=== PATIENT | female | born 1980 | race Caucasian/White ===

== ENCOUNTER 2017-02-04 02:43 | Inpatient (IN) | payer BC ==
[2017-02-04] MEDS ORDERED: HYDROmorphone 1 MG/ML Syringe IVPUSH ONE ×2 (03:10→04:15)
[2017-02-04] MEDS ORDERED: Ondansetron 4 MG/2 ML SDV IVPUSH ONE ×2 (03:10→05:03)
--- NOTE | 2017-02-04 03:13 | EDM.PDOC ---
ED HPI GENERAL MEDICAL PROBLEM - General Chief Complaint: Abdominal Pain Stated Complaint: LOWER ABDOMINAL PAIN Time Seen by Provider: 02/04/17 02:56 Source of Information: Reports: Patient, RN Notes Reviewed History Limitations: Reports: No Limitations - History of Present Illness INITIAL COMMENTS - FREE TEXT/NARRATIVE: The patient states that she developed sudden onset of lower central abdominal pain that occasionally radiates to the upper abdomen around 01:00 this morning, while sitting at work. It is stabbing/shooting in character. It feels better if she holds her breath and remains still, worse with movement. No recent fever, nausea, vomiting, constipation, diarrhea, or urinary symptoms. No prior similar symptoms. The patient's last oral solid intake was around midnight, her last oral liquid intake around 01:00 this morning. The patient does not have a PCP. Bilateral Lower Abdomen Pain Score (Numeric/FACES): 7 - Related Data Allergies Allergy/AdvReac Type Severity Reaction Status Date / Time No Known Allergies Allergy Verified 02/04/17 02:48 Home Meds: Home Meds Omeprazole 20 mg PO DAILY 02/04/17 [History] Past Medical History Cardiovascular History: Reports: High Cholesterol (untreated) Gastrointestinal History: Reports: GERD Endocrine/Metabolic History: Reports: Obesity/BMI 30+ - Past Surgical History HEENT Surgical History: Reports: Oral Surgery ([place] teeth extraction) Social & Family History - Tobacco Use Smoking Status *Q: Current Every Day Smoker Years of Tobacco use: 24 Packs/Tins Daily: 1 - Alcohol Use Alcohol Use History: Yes Alcohol Use Frequency: Socially - Recreational Drug Use Recreational Drug Use: Yes Drug Use in Last 12 Months: No Recreational Drug Type: Reports: Marijuana/Hashish (last = 2013), Methamphetamine (last = 2013) - Living Situation & Occupation Living situation: Reports: (currently ), Alone 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) ED ROS GENERAL - Review of Systems Review Of Systems: See Below Constitutional: Reports: No Symptoms HEENT: Reports: No Symptoms Respiratory: Reports: No Symptoms Cardiovascular: Reports: No Symptoms Endocrine: Reports: No Symptoms GI/Abdominal: Reports: No Symptoms : Reports: No Symptoms Musculoskeletal: Reports: No Symptoms Skin: Reports: No Symptoms Neurological: Reports: No Symptoms Psychiatric: Reports: No Symptoms Hematologic/Lymphatic: Reports: No Symptoms Immunologic: Reports: No Symptoms ED EXAM, GI/ABD - Physical Exam Exam: See Below Exam Limited By: No Limitations General Appearance: Alert, WD/WN, No Apparent Distress Eyes: Bilateral: Normal Appearance, EOMI Ears: Normal External Exam, Hearing Grossly Normal Nose: Normal Inspection, No Blood Throat/Mouth: Normal Inspection, Normal Lips, Normal Voice, No Airway Compromise Head: Atraumatic, Normocephalic Neck: Normal Inspection, Full Range of Motion Respiratory/Chest: No Respiratory Distress, Lungs Clear, Normal Breath Sounds, No Accessory Muscle Use Cardiovascular: Normal Peripheral Pulses, Regular Rate, Rhythm, No Gallop, No JVD, No Murmur, No Rub GI/Abdominal Exam: Normal Bowel Sounds, Soft, No Organomegaly, No Distention, No Abnormal Bruit, No Mass, Pelvis Stable, Tender (Mild general tenderness, but particularly tender in the left upper quadrant.), Abnormal Bowel Sounds (No bowel sounds heard), Other (Obese). No: Rebound (Female) Exam: Deferred Back Exam: Normal Inspection, Full Range of Motion. No: CVA Tenderness (L), CVA Tenderness (R) Extremities: Normal Inspection, Normal Range of Motion, No Pedal Edema, Normal Capillary Refill Neurological: Alert, Oriented, Normal Cognition, No Motor/Sensory Deficits Psychiatric: Normal Affect Skin Exam: Warm, Dry, Intact, Normal Color, No Rash Course - Vital Signs Last Recorded V/S: Last Vital Signs Temp 36.5 C 02/04/17 02:49 Pulse 90 02/04/17 02:49 Resp 16 02/04/17 02:49 BP 149/86 H 02/04/17 02:49 Pulse Ox 99 02/04/17 02:49 - Orders/Labs/Meds Orders: Active Orders 24 hr Category Date Time Status Abdomen Pelvis w Cont [CT] Stat Exams 02/04/17 03:10 Taken Transvaginal Non OB [US] Stat Exams 02/04/17 05:18 Taken Sodium Chloride 0.9% [Normal Saline] 1,000 ml Med 02/04/17 03:15 Active IV ASDIRECTED Medication Orders Sodium Chloride (Normal Saline) 1,000 mls @ 150 mls/hr IV ASDIRECTED MICHELLE Last Admin: 02/04/17 03:21 Dose: 150 mls/hr Labs: Laboratory Tests 02/04/17 02/04/17 02/04/17 Range/Units 03:00 03:00 03:14 WBC 6.18 (3.98-10.04) K/mm3 RBC 4.71 (3.98-5.22) M/mm3 Hgb 14.4 (11.2-15.7) gm/L Hct 42.8 (34.1-44.9) % MCV 90.9 (79.4-94.8) fl MCH 30.6 (25.6-32.2) pg MCHC 33.6 (32.2-35.5) g/dl RDW Std Deviation 41.3 (36.4-46.3) fL Plt Count 286 (182-369) K/mm3 MPV 9.5 (9.4-12.3) fl Neutrophils % (Manual) 56 (40-60) % Band Neutrophils % 0 (0-10) % Lymphocytes % (Manual) 34 (20-40) % Atypical Lymphs % 2 % Monocytes % (Manual) 5 (2-10) % Eosinophils % (Manual) 2 (0.7-5.8) % Basophils % (Manual) 1 (0.1-1.2) Platelet Estimate Adequate Plt Morphology Comment Normal RBC Morph Comment Normal Sodium (136-145) mEq/L Potassium (3.5-5.1) mEq/L Chloride (98-107) mEq/L Carbon Dioxide (21-32) mEq/L Anion Gap (5-15) BUN (7-18) mg/dL Creatinine (0.55-1.02) mg/dL Est Cr Clr Drug Dosing mL/min Estimated GFR (MDRD) (>60) mL/min BUN/Creatinine Ratio (14-18) Glucose (74-106) mg/dL Calcium (8.5-10.1) mg/dL Total Bilirubin (0.2-1.0) mg/dL AST (15-37) U/L ALT (14-59) U/L Alkaline Phosphatase (46-116) U/L Total Protein (6.4-8.2) g/dl Albumin (3.4-5.0) g/dl Globulin gm/dL Albumin/Globulin Ratio (1-2) Lipase (73-393) U/L Urine Color Yellow (Yellow) Urine Appearance Slt cloudy H (Clear) Urine pH 6.0 (5.0-8.0) Ur Specific [place] > or = 1.030 (1.005-1.030) Urine Protein Negative (Negative) Urine Glucose (UA) Negative (Negative) Urine Ketones Negative (Negative) Urine Occult Blood 2+ H (Negative) Urine Nitrite Negative (Negative) Urine Bilirubin Negative (Negative) Urine Urobilinogen 0.2 (0.2-1.0) Ur Leukocyte Esterase Negative (Negative) Urine RBC 0-5 (0-5) /hpf Urine WBC 0-5 (0-5) /hpf Ur Epithelial Cells 0-5 (0-5) /hpf Urine Bacteria Rare (FEW) /hpf Hyaline Casts 0-5 (0-5) /lpf Urine Mucus Moderate H (FEW) /hpf Urine HCG, Qual Negative (NEGATIVE) 02/04/17 02/04/17 Range/Units 03:14 06:40 WBC (3.98-10.04) K/mm3 RBC (3.98-5.22) M/mm3 Hgb 14.1 (11.2-15.7) gm/L Hct 42.0 (34.1-44.9) % MCV (79.4-94.8) fl MCH (25.6-32.2) pg MCHC (32.2-35.5) g/dl RDW Std Deviation (36.4-46.3) fL Plt Count (182-369) K/mm3 MPV (9.4-12.3) fl Neutrophils % (Manual) (40-60) % Band Neutrophils % (0-10) % Lymphocytes % (Manual) (20-40) % Atypical Lymphs % % Monocytes % (Manual) (2-10) % Eosinophils % (Manual) (0.7-5.8) % Basophils % (Manual) (0.1-1.2) Platelet Estimate Plt Morphology Comment RBC Morph Comment Sodium 143 (136-145) mEq/L Potassium 3.8 (3.5-5.1) mEq/L Chloride 105 (98-107) mEq/L Carbon Dioxide 26 (21-32) mEq/L Anion Gap 15.8 H (5-15) BUN 16 (7-18) mg/dL Creatinine 1.2 H (0.55-1.02) mg/dL Est Cr Clr Drug Dosing 51.75 mL/min Estimated GFR (MDRD) 51 (>60) mL/min BUN/Creatinine Ratio 13.3 L (14-18) Glucose 95 (74-106) mg/dL Calcium 8.8 (8.5-10.1) mg/dL Total Bilirubin 0.5 (0.2-1.0) mg/dL AST 26 (15-37) U/L ALT 47 (14-59) U/L Alkaline Phosphatase 67 (46-116) U/L Total Protein 6.9 (6.4-8.2) g/dl Albumin 3.8 (3.4-5.0) g/dl Globulin 3.1 gm/dL Albumin/Globulin Ratio 1.2 (1-2) Lipase 123 (73-393) U/L Urine Color (Yellow) Urine Appearance (Clear) Urine pH (5.0-8.0) Ur Specific [place] (1.005-1.030) Urine Protein (Negative) Urine Glucose (UA) (Negative) Urine Ketones (Negative) Urine Occult Blood (Negative) Urine Nitrite (Negative) Urine Bilirubin (Negative) Urine Urobilinogen (0.2-1.0) Ur Leukocyte Esterase (Negative) Urine RBC (0-5) /hpf Urine WBC (0-5) /hpf Ur Epithelial Cells (0-5) /hpf Urine Bacteria (FEW) /hpf Hyaline Casts (0-5) /lpf Urine Mucus (FEW) /hpf Urine HCG, Qual (NEGATIVE) Meds: Medications Generic Name Dose Route Start Last Admin Trade Name Freq PRN Reason Stop Dose Admin Sodium Chloride 1,000 mls @ 150 mls/hr 02/04/17 03:15 02/04/17 03:21 Normal Saline IV 150 mls/hr ASDIRECTED MICHELLE Administration Discontinued Medications Generic Name Dose Route Start Last Admin Trade Name Freq PRN Reason Stop Dose Admin Diatrizoate Meglum/Diatrizoate Sod 90 ml 02/04/17 04:20 02/04/17 04:41 Gastrografin 37% PO 02/04/17 04:21 90 ml ONETIME ONE Administration Hydromorphone HCl 1 mg 02/04/17 03:10 02/04/17 03:24 Dilaudid IVPUSH 02/04/17 03:11 1 mg ONETIME ONE Administration Hydromorphone HCl 1 mg 02/04/17 04:15 02/04/17 04:23 Dilaudid IVPUSH 02/04/17 04:16 1 mg ONETIME ONE Administration Hydromorphone HCl 0.5 mg 02/04/17 06:45 02/04/17 06:51 Dilaudid IVPUSH 02/04/17 06:46 0.5 mg ONETIME ONE Administration Iopamidol 125 ml 02/04/17 04:20 02/04/17 04:41 Isovue-300 (61%) IVPUSH 02/04/17 04:21 125 ml ONETIME ONE Administration Ondansetron HCl 4 mg 02/04/17 03:10 02/04/17 03:21 Zofran IVPUSH 02/04/17 03:11 4 mg ONETIME ONE Administration Ondansetron HCl 4 mg 02/04/17 05:03 02/04/17 05:08 Zofran IVPUSH 02/04/17 05:04 4 mg ONETIME ONE Administration Sodium Chloride 10 ml 02/04/17 04:20 02/04/17 04:41 Saline Flush FLUSH 02/04/17 04:21 10 ml ONETIME ONE Administration - Re-Assessments/Exams Free Text/Narrative Re-Assessment/Exam: 02/04/17 05:13 CT of the abdomen and pelvis with oral and IV contrast is read by virtual radiology as: 1. Heterogeneous left adnexal mass, differential considerations to include hemorrhagic ovarian cyst or mass, hematoma. Also correlate with beta hCG for ectopic . [id number] amount of hemorrhagic fluid. 2. Gastric distention with enteric contrast. Correlate with plain patient finished oral contrast to exclude gastroparesis. 02/04/17 05:[address] Bullock at 05:13. She would like me to obtain a pelvic ultrasound to evaluate the left ovary and the amount leading into the pelvis, and, in the meantime, she will come to the ED to evaluate the patient. 02/04/17 06:59 Dr. Bullock came by and stated that the U/S demonstrated blood up over the fundus. She repeated a hemogram, which was stable, and the patient has remained hemodynamically stable. Dr. Bullock was willing to place the patient into observation, however, she is concerned that the pain will continue because of the presence of the blood, therefore they have decided to go to the OR for laparoscopy. Departure - Departure Time of Disposition: 07:02 Disposition: DC/Tfer to [facility] Condition: Fair Clinical Impression: Hemorrhagic cyst of left ovary, Intraabdominal hemorrhage - Discharge Information - My Orders Last 24 Hours: My Active Orders 02/04/17 03:10 Abdomen Pelvis w Cont [CT] Stat 02/04/17 03:15 Sodium Chloride 0.9% [Normal Saline] 1,000 ml IV ASDIRECTED 02/04/17 05:18 Transvaginal Non OB [US] Stat - Assessment/Plan Last 24 Hours: My Active Orders 02/04/17 03:10 Abdomen Pelvis w Cont [CT] Stat 02/04/17 03:15 Sodium Chloride 0.9% [Normal Saline] 1,000 ml IV ASDIRECTED 02/04/17 05:18 Transvaginal Non OB [US] Stat
[2017-02-04] MEDS: Sodium Chloride 0.9% 1,000 ML IV SCH ×2 (03:21→14:46)
[2017-02-04] MEDS ORDERED: Sodium Chloride 0.9% 10 ML Syringe FLUSH ONE (04:20)
[2017-02-04] MEDS ORDERED: Diatrizoate Meglumine/Diatrizoate Sodium 37% 120 ML Bottle PO ONE (04:20)
[2017-02-04] MEDS ORDERED: Iopamidol 612 MG/ML 150 ML Bottle IVPUSH ONE (04:20)
--- NOTE | 2017-02-04 06:42 | PCM.HP ---
H&P History of Present Illness - General Date of Service: 02/04/17 Source of Information: Patient History Limitations: Reports: No Limitations - History of Present Illness Initial Comments - Free Text/Narative: Patient is a 37 y/o G0 who presents to the ER today for an acute episode of abdominal pain. Reports she was sitting at her work earlier this am, around 0100, when she had the feeling of sudden onset of pain and feeling warm/ flushed. Went home and tried to lay down, but pain worsened and so was brought to the ER by a friend. Denies any fevers, chills, diarrhea, constipation, dysuria, hematuria. Bilateral Lower Abdomen Pain Score (Numeric/FACES): 7 - Related Data Allergies/Adverse Reactions: Allergies Allergy/AdvReac Type Severity Reaction Status Date / Time No Known Allergies Allergy Verified 02/04/17 02:48 Home Medications: Home Meds Omeprazole 20 mg PO DAILY 02/04/17 [History] Past Medical History Cardiovascular History: Reports: High Cholesterol (untreated) Gastrointestinal History: Reports: GERD Endocrine/Metabolic History: Reports: Obesity/BMI 30+ - Past Surgical History HEENT Surgical History: Reports: Oral Surgery ([place] teeth extraction) Social & Family History - Tobacco Use Smoking Status *Q: Current Every Day Smoker Years of Tobacco use: 24 Packs/Tins Daily: 1 - Alcohol Use Alcohol Use History: Yes Alcohol Use Frequency: Socially - Recreational Drug Use Recreational Drug Use: Yes Drug Use in Last 12 Months: No Recreational Drug Type: Reports: Marijuana/Hashish (last = 2013), Methamphetamine (last = 2013) - Living Situation & Occupation Living situation: Reports: (currently ), Alone 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) H&P Review of Systems - Review of Systems: Review Of Systems: See Below General: Reports: No Symptoms Pulmonary: Reports: No Symptoms Cardiovascular: Reports: No Symptoms Gastrointestinal: Reports: Abdominal Pain, Nausea Genitourinary: Reports: No Symptoms Musculoskeletal: Reports: No Symptoms Psychiatric: Reports: No Symptoms Exam - Exam Exam: See Below - Vital Signs Vital Signs: Last Vital Signs Temp 36.5 C 02/04/17 02:49 Pulse 90 02/04/17 02:49 Resp 16 02/04/17 02:49 BP 149/86 H 02/04/17 02:49 Pulse Ox 99 02/04/17 02:49 Weight: 138.346 kg - Exam General: Alert, Oriented, Mild Distress Lungs: Clear to Auscultation, Normal Respiratory Effort Cardiovascular: Regular Rate, Regular Rhythm GI/Abdominal Exam: Soft, Guarding, Tender Extremities: Normal Inspection Skin: Warm, Dry, Intact - Patient Data Lab Results Last 24 hrs: Laboratory Results - last 24 hr 02/04/17 02/04/17 02/04/17 Range/Units 03:00 03:00 03:14 WBC 6.18 (3.98-10.04) K/mm3 RBC 4.71 (3.98-5.22) M/mm3 Hgb 14.4 (11.2-15.7) gm/L Hct 42.8 (34.1-44.9) % MCV 90.9 (79.4-94.8) fl MCH 30.6 (25.6-32.2) pg MCHC 33.6 (32.2-35.5) g/dl RDW Std Deviation 41.3 (36.4-46.3) fL Plt Count 286 (182-369) K/mm3 MPV 9.5 (9.4-12.3) fl Neutrophils % (Manual) 56 (40-60) % Band Neutrophils % 0 (0-10) % Lymphocytes % (Manual) 34 (20-40) % Atypical Lymphs % 2 % Monocytes % (Manual) 5 (2-10) % Eosinophils % (Manual) 2 (0.7-5.8) % Basophils % (Manual) 1 (0.1-1.2) Platelet Estimate Adequate Plt Morphology Comment Normal RBC Morph Comment Normal Sodium (136-145) mEq/L Potassium (3.5-5.1) mEq/L Chloride (98-107) mEq/L Carbon Dioxide (21-32) mEq/L Anion Gap (5-15) BUN (7-18) mg/dL Creatinine (0.55-1.02) mg/dL Est Cr Clr Drug Dosing mL/min Estimated GFR (MDRD) (>60) mL/min BUN/Creatinine Ratio (14-18) Glucose (74-106) mg/dL Calcium (8.5-10.1) mg/dL Total Bilirubin (0.2-1.0) mg/dL AST (15-37) U/L ALT (14-59) U/L Alkaline Phosphatase (46-116) U/L Total Protein (6.4-8.2) g/dl Albumin (3.4-5.0) g/dl Globulin gm/dL Albumin/Globulin Ratio (1-2) Lipase (73-393) U/L Urine Color Yellow (Yellow) Urine Appearance Slt cloudy H (Clear) Urine pH 6.0 (5.0-8.0) Ur Specific [place] > or = 1.030 (1.005-1.030) Urine Protein Negative (Negative) Urine Glucose (UA) Negative (Negative) Urine Ketones Negative (Negative) Urine Occult Blood 2+ H (Negative) Urine Nitrite Negative (Negative) Urine Bilirubin Negative (Negative) Urine Urobilinogen 0.2 (0.2-1.0) Ur Leukocyte Esterase Negative (Negative) Urine RBC 0-5 (0-5) /hpf Urine WBC 0-5 (0-5) /hpf Ur Epithelial Cells 0-5 (0-5) /hpf Urine Bacteria Rare (FEW) /hpf Hyaline Casts 0-5 (0-5) /lpf Urine Mucus Moderate H (FEW) /hpf Urine HCG, Qual Negative (NEGATIVE) 02/04/17 Range/Units 03:14 WBC (3.98-10.04) K/mm3 RBC (3.98-5.22) M/mm3 Hgb (11.2-15.7) gm/L Hct (34.1-44.9) % MCV (79.4-94.8) fl MCH (25.6-32.2) pg MCHC (32.2-35.5) g/dl RDW Std Deviation (36.4-46.3) fL Plt Count (182-369) K/mm3 MPV (9.4-12.3) fl Neutrophils % (Manual) (40-60) % Band Neutrophils % (0-10) % Lymphocytes % (Manual) (20-40) % Atypical Lymphs % % Monocytes % (Manual) (2-10) % Eosinophils % (Manual) (0.7-5.8) % Basophils % (Manual) (0.1-1.2) Platelet Estimate Plt Morphology Comment RBC Morph Comment Sodium 143 (136-145) mEq/L Potassium 3.8 (3.5-5.1) mEq/L Chloride 105 (98-107) mEq/L Carbon Dioxide 26 (21-32) mEq/L Anion Gap 15.8 H (5-15) BUN 16 (7-18) mg/dL Creatinine 1.2 H (0.55-1.02) mg/dL Est Cr Clr Drug Dosing 51.75 mL/min Estimated GFR (MDRD) 51 (>60) mL/min BUN/Creatinine Ratio 13.3 L (14-18) Glucose 95 (74-106) mg/dL Calcium 8.8 (8.5-10.1) mg/dL Total Bilirubin 0.5 (0.2-1.0) mg/dL AST 26 (15-37) U/L ALT 47 (14-59) U/L Alkaline Phosphatase 67 (46-116) U/L Total Protein 6.9 (6.4-8.2) g/dl Albumin 3.8 (3.4-5.0) g/dl Globulin 3.1 gm/dL Albumin/Globulin Ratio 1.2 (1-2) Lipase 123 (73-393) U/L Urine Color (Yellow) Urine Appearance (Clear) Urine pH (5.0-8.0) Ur Specific [place] (1.005-1.030) Urine Protein (Negative) Urine Glucose (UA) (Negative) Urine Ketones (Negative) Urine Occult Blood (Negative) Urine Nitrite (Negative) Urine Bilirubin (Negative) Urine Urobilinogen (0.2-1.0) Ur Leukocyte Esterase (Negative) Urine RBC (0-5) /hpf Urine WBC (0-5) /hpf Ur Epithelial Cells (0-5) /hpf Urine Bacteria (FEW) /hpf Hyaline Casts (0-5) /lpf Urine Mucus (FEW) /hpf Urine HCG, Qual (NEGATIVE) Result Diagrams: 02/04/17 06:40 02/04/17 03:14 *Q Meaningful Use (ADM) - VTE *Q VTE Criteria *Q: - Stroke *Q Stroke Criteria *Q: - AMI *Q AMI Criteria *Q: - Problem List (1) Hemoperitoneum SNOMED Code(s): 696855413 ICD Code: K66.1 - HEMOPERITONEUM Status: Acute Current Visit: Yes (2) Abdominal pain SNOMED Code(s): 64922680 ICD Code: R10.9 - UNSPECIFIED ABDOMINAL PAIN Status: Acute Current Visit : Yes Qualifiers: Abdominal location: lower abdomen, unspecified Qualified Code(s): R10.30 - Lower abdominal pain, unspecified (3) BMI 50.0-59.9, adult SNOMED Code(s): 249531226 ICD Code: Z68.43 - BODY MASS INDEX (BMI) 50-59.9 , ADULT Status: Acute Current Visit: Yes Problem List Initiated/Reviewed/Updated: Yes Orders Last 24hrs: Active Orders 24 hr Category Date Time Status Abdomen Pelvis w Cont [CT] Stat Exams 02/04/17 03:10 Taken Transvaginal Non OB [US] Stat Exams 02/04/17 05:18 Ordered HEMOGLOBIN/HEMATOCRIT,HH [HEME] Stat Lab 02/04/17 06:34 Ordered Sodium Chloride 0.9% [Normal Saline] 1,000 ml Med 02/04/17 03:15 Active IV ASDIRECTED Medication Orders Sodium Chloride (Normal Saline) 1,000 mls @ 150 mls/hr IV ASDIRECTED MICHELLE Last Admin: 02/04/17 03:21 Dose: 150 mls/hr Assessment/Plan Comment:: 37 y/o G0 woman with acute episode of abdominal pain. CT scan done earlier with moderate amount of fluid in her abdomen and possible hemorrhagic cyst. US done following which does show a large amount of fluid in the cul de sac. Patient's Hb repeated after this study and stable when compared to initial evaluation. Reviewed with patient options of having her be admitted to the floor with pain control and serial exams vs diagnostic laparoscopy. Concern with admitting her to the floor is that we may not be able to get ahead of her pain given amount of fluid seen on imaging. Also possibility she could continue to bleed and become unstable. Concern with surgery is that her BMI puts her at high risk of complications. Ultimately after discussion she has elected to proceed with diagnostic laparoscopy, possible cystectomy, possible oophorectomy, possible conversion to open. OR aware.
[2017-02-04] MEDS ORDERED: HYDROmorphone 0.5 MG/0.5 ML Syringe IVPUSH ONE (06:45)
--- NOTE | 2017-02-04 07:03 | US ---
Pelvic ultrasound: Multiple real-time images were obtained transvaginally. Comparison: Prior CT exam performed earlier on the same day (4:41 AM). Large amount of fluid identified within the pelvis which appears complicated and is compatible with blood. Follicles are seen within the right ovary. Left ovary shows a collapsing hemorrhagic cyst measuring 1.7 cm. Uterus is anteverted and appears unremarkable. Endometrial thickness is normal at 2.8 mm. Measurements: Uterus: Length 7.0 cm, AP and 2.9 cm, transverse width 4.2 cm Right ovary: 3.4 x 1.9 x 2.2 cm Left ovary: 4.2 x 3.9 x 1.5 cm Impression: 1. Fair amount of fluid within the pelvis which appears complicated and is compatible with blood. Collapsing hemorrhagic cyst noted within the left ovary measuring 1.7 cm. 2. Pelvic ultrasound is otherwise unremarkable. Diagnostic code #3
--- NOTE | 2017-02-04 07:40 | PCM.PREANE ---
Preanesthetic Assessment - Procedure Proposed Procedure: Diagnostic laparoscopy - Anesthesia/Transfusion/Family Hx Anesthesia History: No Prior Anesthesia Type of Anesthesia Reaction: Unknown Family History of Anesthesia Reaction: No Transfusion History: No Prior Transfusion(s) Type of Transfusion Reactions: Reports: Unknown Intubation History: Unknown - Review of Systems General: No Symptoms Pulmonary: Shortness of Breath (due to smoking per patient ) Cardiovascular: Other (hyperlipidemia ) Gastrointestinal: Abdominal Pain Neurological: No Symptoms Other: Reports: Easy Bruising, Anxiety - Physical Assessment NPO Status Date: 02/04/17 NPO Status Time: 00:00 O2 Sat by Pulse Oximetry: 99 Respiratory Rate: 16 Vital Signs: Last Vital Signs Temp 36.5 C 02/04/17 02:49 Pulse 90 02/04/17 02:49 Resp 16 02/04/17 02:49 BP 149/86 H 02/04/17 02:49 Pulse Ox 99 02/04/17 02:49 Height: 1.57 m Weight: 138.346 kg ASA Class: 2E Mental Status: Alert & Oriented x3 Airway Class: Mallampati = 2 Dentition: Reports: Normal Dentition, Broken Tooth/Teeth (cracked left bottom molar, multiple fillings on right bottom molars ) Thyro-Mental Finger Breadths: 3 Mouth Opening Finger Breadths: 3 ROM/Head Extension: Full Lungs: Clear to Auscultation, Normal Respiratory Effort Cardiovascular: Regular Rate, Regular Rhythm - Lab Values: Laboratory Last Values WBC 6.18 K/mm3 (3.98-10.04) 02/04/17 03:14 RBC 4.71 M/mm3 (3.98-5.22) 02/04/17 03:14 Hgb 14.1 gm/L (11.2-15.7) 02/04/17 06:40 Hct 42.0 % (34.1-44.9) 02/04/17 06:40 MCV 90.9 fl (79.4-94.8) 02/04/17 03:14 MCH 30.6 pg (25.6-32.2) 02/04/17 03:14 MCHC 33.6 g/dl (32.2-35.5) 02/04/17 03:14 RDW Std Deviation 41.3 fL (36.4-46.3) 02/04/17 03:14 Plt Count 286 K/mm3 (182-369) 02/04/17 03:14 MPV 9.5 fl (9.4-12.3) 02/04/17 03:14 Neutrophils % (Manual) 56 % (40-60) 02/04/17 03:14 Band Neutrophils % 0 % (0-10) 02/04/17 03:14 Lymphocytes % (Manual) 34 % (20-40) 02/04/17 03:14 Atypical Lymphs % 2 % 02/04/17 03:14 Monocytes % (Manual) 5 % (2-10) 02/04/17 03:14 Eosinophils % (Manual) 2 % (0.7-5.8) 02/04/17 03:14 Basophils % (Manual) 1 (0.1-1.2) 02/04/17 03:14 Platelet Estimate Adequate 02/04/17 03:14 Plt Morphology Comment Normal 02/04/17 03:14 RBC Morph Comment Normal 02/04/17 03:14 Sodium 143 mEq/L (136-145) 02/04/17 03:14 Potassium 3.8 mEq/L (3.5-5.1) 02/04/17 03:14 Chloride 105 mEq/L (98-107) 02/04/17 03:14 Carbon Dioxide 26 mEq/L (21-32) 02/04/17 03:14 Anion Gap 15.8 (5-15) H 02/04/17 03:14 BUN 16 mg/dL (7-18) 02/04/17 03:14 Creatinine 1.2 mg/dL (0.55-1.02) H 02/04/17 03:14 Est Cr Clr Drug Dosing 51.75 mL/min 02/04/17 03:14 Estimated GFR (MDRD) 51 mL/min (>60) 02/04/17 03:14 BUN/Creatinine Ratio 13.3 (14-18) L 02/04/17 03:14 Glucose 95 mg/dL (74-106) 02/04/17 03:14 Calcium 8.8 mg/dL (8.5-10.1) 02/04/17 03:14 Total Bilirubin 0.5 mg/dL (0.2-1.0) 02/04/17 03:14 AST 26 U/L (15-37) 02/04/17 03:14 ALT 47 U/L (14-59) 02/04/17 03:14 Alkaline Phosphatase 67 U/L (46-116) 02/04/17 03:14 Total Protein 6.9 g/dl (6.4-8.2) 02/04/17 03:14 Albumin 3.8 g/dl (3.4-5.0) 02/04/17 03:14 Globulin 3.1 gm/dL 02/04/17 03:14 Albumin/Globulin Ratio 1.2 (1-2) 02/04/17 03:14 Lipase 123 U/L (73-393) 02/04/17 03:14 Urine Color Yellow (Yellow) 02/04/17 03:00 Urine Appearance Slt cloudy (Clear) H 02/04/17 03:00 Urine pH 6.0 (5.0-8.0) 02/04/17 03:00 Ur Specific [place] > or = 1.030 (1.005-1.030) 02/04/17 03:00 Urine Protein Negative (Negative) 02/04/17 03:00 Urine Glucose (UA) Negative (Negative) 02/04/17 03:00 Urine Ketones Negative (Negative) 02/04/17 03:00 Urine Occult Blood 2+ (Negative) H 02/04/17 03:00 Urine Nitrite Negative (Negative) 02/04/17 03:00 Urine Bilirubin Negative (Negative) 02/04/17 03:00 Urine Urobilinogen 0.2 (0.2-1.0) 02/04/17 03:00 Ur Leukocyte Esterase Negative (Negative) 02/04/17 03:00 Urine RBC 0-5 /hpf (0-5) 02/04/17 03:00 Urine WBC 0-5 /hpf (0-5) 02/04/17 03:00 Ur Epithelial Cells 0-5 /hpf (0-5) 02/04/17 03:00 Urine Bacteria Rare /hpf (FEW) 02/04/17 03:00 Hyaline Casts 0-5 /lpf (0-5) 02/04/17 03:00 Urine Mucus Moderate /hpf (FEW) H 02/04/17 03:00 Urine HCG, Qual Negative (NEGATIVE) 02/04/17 03:00 - Allergies Allergies/Adverse Reactions: Allergies Allergy/AdvReac Type Severity Reaction Status Date / Time No Known Allergies Allergy Verified 02/04/17 02:48 - Blood Blood Available: No Product(s) Available: None - Anesthesia Plan Pre-Op Medication Ordered: None - Acknowledgements Anesthesia Type Planned: General Anesthesia (RSI) Pt an Appropriate Candidate for the Planned Anesthesia: Yes Alternatives and Risks of Anesthesia Discussed w Pt/Guardian: Yes Pt/Guardian Understands and Agrees with Anesthesia Plan: Yes PreAnesthesia Questionnaire - Past Health History Medical/Surgical History: Denies Medical/Surgical History Cardiovascular History: Reports: High Cholesterol (untreated) Gastrointestinal History: Reports: GERD Endocrine/Metabolic History: Reports: Obesity/BMI 30+ - Past Surgical History HEENT Surgical History: Reports: Oral Surgery ([place] teeth extraction) - SUBSTANCE USE Smoking Status *Q: Current Every Day Smoker (1ppd for 20 years) Tobacco Use Within Last Twelve Months: Cigarettes Recreational Drug Use History: Yes Recreational Drug Type: Reports: Marijuana/Hashish (last = 2013), Methamphetamine (last = 2013) - HOME MEDS Home Medications: Home Meds Omeprazole 20 mg PO DAILY 02/04/17 [History] - CURRENT (IN HOUSE) MEDS Current Meds: Current Medications Sodium Chloride (Normal Saline) 1,000 mls @ 150 mls/hr IV ASDIRECTED MICHELLE Last Admin: 02/04/17 03:21 Dose: 150 mls/hr Discontinued Medications Dexamethasone (Dexamethasone) Confirm Administered Dose 4 mg .ROUTE .STK-MED ONE Stop: 02/04/17 07:52 Diatrizoate Meglum/Diatrizoate Sod (Gastrografin 37%) 90 ml PO ONETIME ONE Stop: 02/04/17 04:21 Last Admin: 02/04/17 04:41 Dose: 90 ml Fentanyl (Sublimaze) Confirm Administered Dose 250 mcg .ROUTE .STK-MED ONE Stop: 02/04/17 07:51 Hydromorphone HCl (Dilaudid) 1 mg IVPUSH ONETIME ONE Stop: 02/04/17 03:11 Last Admin: 02/04/17 03:24 Dose: 1 mg Hydromorphone HCl (Dilaudid) 1 mg IVPUSH ONETIME ONE Stop: 02/04/17 04:16 Last Admin: 02/04/17 04:23 Dose: 1 mg Hydromorphone HCl (Dilaudid) 0.5 mg IVPUSH ONETIME ONE Stop: 02/04/17 06:46 Last Admin: 02/04/17 06:51 Dose: 0.5 mg Lidocaine HCl (Xylocaine-Mpf 1%) Confirm Administered Dose 4 mls @ as directed .ROUTE .STK-MED ONE Stop: 02/04/17 07:52 Iopamidol (Isovue-300 (61%)) 125 ml IVPUSH ONETIME ONE Stop: 02/04/17 04:21 Last Admin: 02/04/17 04:41 Dose: 125 ml Midazolam HCl (Versed 1 Mg/Ml) Confirm Administered Dose 2 mg .ROUTE .STK-MED ONE Stop: 02/04/17 07:51 Ondansetron HCl (Zofran) 4 mg IVPUSH ONETIME ONE Stop: 02/04/17 03:11 Last Admin: 02/04/17 03:21 Dose: 4 mg Ondansetron HCl (Zofran) 4 mg IVPUSH ONETIME ONE Stop: 02/04/17 05:04 Last Admin: 02/04/17 05:08 Dose: 4 mg Ondansetron HCl (Zofran) Confirm Administered Dose 4 mg .ROUTE .STK-MED ONE Stop: 02/04/17 07:52 Propofol (Diprivan 20 Ml) Confirm Administered Dose 200 mg .ROUTE .STK-MED ONE Stop: 02/04/17 07:50 Rocuronium [place] (Zemuron) Confirm Administered Dose 50 mg .ROUTE .STK-MED ONE Stop: 02/04/17 07:52 Sodium Chloride (Saline Flush) 10 ml FLUSH ONETIME ONE Stop: 02/04/17 04:21 Last Admin: 02/04/17 04:41 Dose: 10 ml Succinylcholine Chloride (Quelicin) Confirm Administered Dose 200 mg .ROUTE .STK -MED ONE Stop: 02/04/17 07:52
[2017-02-04] MEDS ORDERED: Propofol 200 MG/20 ML SDV ONE (07:49)
[2017-02-04] MEDS ORDERED: fentaNYL 250 MCG/5 ML SDV ONE (07:50)
[2017-02-04] MEDS ORDERED: Midazolam 1 MG/ML 2 ML SDV ONE (07:50)
--- NOTE | 2017-02-04 07:50 | PCM.OPNOTE ---
- General Post-Op/Procedure Note Date of Surgery/Procedure: 02/04/17 Operative Procedure(s): Diagnostic laparoscopy. Evacuation/Irrigation of purluent material. Left salpingo-oophorectomy Findings: Intra-abdominal evaluation with large amount of slightly blood tinged purulent material. Left fallopian tube dilated and ovary very friable. With manipulation rupture of ovary/fallopian tube occurs with release of more yellowish colored purulent material. Normal appearance of the right fallopian tube and ovary. Normal appearance to the uterus. Small bowel is erythematous in some locations - thought to be a reaction to pelvic infection per Dr. Sheffield. Normal appearance of the appendix. Grossly normal findings in the upper abdomen. OG tube with large amounts of dark brown/black tinged fluid. Pre Op Diagnosis: Abdominal/pelvic pain - concerns for ruptured hemorrhagic cyst Post-Op Diagnosis: Intraabdominal findings of ruptured left sided tubo-ovarian abscess Anesthesia Technique: General ET Tube Primary Surgeon: Zohra Bullock Secondary Surgeon: Kaleb Sheffield (Intra-op consult ) Anesthesia Provider: Hunter Savage Pathology: Pelvic fluid sent for micro assessment. Left fallopian tube and ovary sent to pathology Fluid Replacement, Intraop: 2,000 Output, Urine Amount: 40 EBL in mLs: 20 Drain/Tube Comments:: 750 cc of dark material from OG tube intra-op Complications: None Condition: Good Free Text/Narrative:: The risks, benefits, indications, potential complications, and alternatives were explained to the patient and informed consent obtained. The patient was taken to the Operating Room where general anesthesia was induced without complication. With OG placement a large amount of dark fluid removed from the stomach. This was sent off for heme testing. The patient was placed in dorsal lithotomy with Navid Stirrups. The patient was then prepped and draped in the usual sterile fashion. A sterile speculum was placed into the vagina and the anterior lip of the cervix was grasped with a single tooth tenaculum. A [facility] uterine manipulator was then advanced into the cervix and attached to the cervix to allow uterine manipulation throughout the procedure. The single tooth tenaculum was removed. The speculum was removed from the vagina. A Trimble catheter was placed in the bladder. Attention was then turned to the patients abdomen where a Veress needle was inserted into the abdomen while tenting the abdominal wall. Intraabdominal placement was confirmed with a drop test using a saline filled syringe and low intraabdominal pressure on low flow. A vertical infraumbilical incision was made in the umbilical fold and the 5 mm blunt trocar was inserted with the 5 mm laparoscope inserted through the trocar for direct visualization of abdominal entry through the clear view lens. Once intraabdominal placement was confirmed, the blunt obturator was removed and the laparoscope was inserted and exam of the patient's abdomen revealed the findings detailed above. Attention was turned to placement of the accessory ports. Both ports were placed approximately 10 cm lateral and 2-3 cm below the level of the first incision. A 5 mm skin incision was made in the left lower quadrant and a 5 mm trocar was inserted into the abdomen under direct visualization with care to avoid the abdominal wall vasculature. A second port was placed through a 5 mm skin incision in the right lower quadrant. A 5 mm trocar was inserted into the abdomen under direct visualization with care to avoid the abdominal wall vasculature. Blunt graspers and probes were used to further examine the pelvis by sweeping bowel away from the dissection field and elevating the adnexal structures. Suction performed of purulent material noted to be sitting in the pelvis. Irrigation performed as well. As this point in the case Dr. Sheffield was asked to assess patient due to contents from OG tube and findings of erythema along the bowel. He felt erythema likely reaction from pelvic infection and plans to follow up OG findings as an outpatient. The left ovary was elevated with a blunt grasper. The left infundibulopelvic ligament was grasped with the Ligasure device and doubly burned and then transected. The Ligasure was then used to cauterize and transect along the fallopian tube from the level of the ovary to the uterine cornua. The left fallopian tube was then cauterized and transected at the level of the cornua. Once the left adnexa was free, it was placed into the anterior cul de sac. The left 5 mm port was removed and replaced with a 10 mm port. An Endocatch bag was placed through the LLQ port and the adnexa was placed into the bag under direct visualization. The bag was then elevated to the anterior abdominal wall and closed. A sheldon clamp was used to stretch the fascia of the LLQ port and then used to remove the ovary from inside the Endocatch bag in a piecemeal fashion. Attention was turned back to the pelvis where irrigation was performed and hemostasis was confirmed of dissection bed. The left lower quadrant trocar was removed under direct visualization and the Yoseph Nava inlet closure device was placed into the abdomen and used to re- approximate the fascia of the 10 mm port with a suture 0-Vicryl. The right lower quadrant trocar was then removed under direct visualization. The pneumoperitoneum was allowed to escape. The umbilical trocar was removed and lastly the camera was removed from the abdomen under direct visualization to confirm no herniation into the port site. 0.25% Marcaine was injected into the subcutaneous tissue of all skin incisions for local anesthesia. The skin incisions were re-approximated with 4-0 Monocryl in a running subcuticular fashion. Dermabond was also used to seal the incisions. Hemostasis was excellent. The vaginal instruments and Trimble catheter were all removed and hemostasis was adequate. All sponge, lap, needle, and instrument counts were correct x 2.The patient tolerated the procedure well and there were no complications.
[2017-02-04] MEDS ORDERED: Succinylcholine 200 MG/10 ML MDV ONE (07:51)
[2017-02-04] MEDS ORDERED: Rocuronium 50 MG/5 ML Vial ONE (07:51)
[2017-02-04] MEDS ORDERED: Lidocaine 1% 4 ML ONE (07:51)
[2017-02-04] MEDS ORDERED: Ondansetron 4 MG/2 ML SDV ONE (07:51)
[2017-02-04] MEDS ORDERED: Dexamethasone 4 MG/ML SDV ONE (07:51)
[2017-02-04] MEDS ORDERED: Bupivacaine 0.5% 30 ML SDV ONE (08:03)
--- NOTE | 2017-02-04 08:49 | CT ---
CT abdomen and pelvis Technique: Multiple axial sections were obtained from above the dome of the diaphragm inferiorly through the pubic symphysis. Intravenous and oral contrast was utilized. Oral contrast remains within the stomach. Reconstructed coronal and sagittal images were obtained. Delayed images were also obtained through the bladder. Comparison: No previous abdominal or pelvic imaging. Findings: Heterogeneous mass identified within the left adnexa. This contains some low density material as well as high density material. This mass measures approximately 5.5 cm in greatest size. There is fluid identified within the adjacent cul-de-sac. Slight inflammatory change seen along the paracolic gutters next to the appendix. Visualized lung bases are clear. Liver shows no focal parenchymal abnormality but appears to be fatty. Spleen appears within normal limits. Adrenal glands show no nodule. Kidneys show contrast enhancement without hydronephrosis or mass. Pancreas is within normal limits. Aorta shows no aneurysmal dilatation. No retroperitoneal adenopathy or mesenteric abnormalities are appreciated. Mild increased stool noted within the right colon. Appendix appears normal in size and contains a small high density area likely representing minimal appendicolith. No additional pelvic abnormality is seen. Delayed images show contrast within the distal ureters and bladder. Bone window settings were reviewed which appear within normal limits for the patient's age. Impression: 1. Free fluid next to a left adnexal mass. Findings likely represent rupturing cyst which is likely hemorrhagic. 2. Small appendicoliths. Appendix appears normal in size. 3. Fatty infiltration within the liver. Mild increased stool is noted within the right colon. Diagnostic code #3 I agree with preliminary report issued by [facility] ([facility] report finalized on 02/04/17, 6:10 AM Central Time)
[2017-02-04] MEDS ORDERED: Lactated Ringers 1,000 ML ONE (09:15)
[2017-02-04] MEDS ORDERED: Meperidine PF 50 MG/ML Syringe IVPUSH PRN (09:17)
[2017-02-04] MEDS ORDERED: Ondansetron 4 MG/2 ML SDV IVPUSH PRN (09:17)
[2017-02-04] MEDS ORDERED: fentaNYL 100 MCG/2 ML SDV IVPUSH PRN (09:17)
[2017-02-04] MEDS ORDERED: HYDROmorphone 1 MG/ML Syringe ONE (09:47)
[2017-02-04] MEDS ORDERED: Ketorolac 30 MG/ML SDV ONE (10:07)
[2017-02-04] MEDS ORDERED: Neostigmine Methylsulfate 1 MG/ML 5 ML Syringe ONE (10:14)
[2017-02-04] MEDS ORDERED: Acetaminophen/oxyCODONE 325-5 MG Tab PO PRN (10:17)
--- NOTE | 2017-02-04 10:31 | PCM.POSTAN ---
POST ANESTHESIA ASSESSMENT - MENTAL STATUS Mental Status: Alert, Oriented - VITAL SIGNS Pulse Rate: 84 SaO2: 93 Resp Rate: 14 Blood Pressure: 106/92 Temperature: 97.9 F - RESPIRATORY Respiratory Status: Respiratory Rate WNL, Airway Patent, O2 Saturation Stable, Supplemental Oxygen - CARDIOVASCULAR CV Status: Pulse Rate WNL, Blood Pressure Stable - GASTROINTESTINAL GI Status: No Symptoms - PAIN Pain Score: 3 (little pain) - POST OP HYDRATION Hydration Status: Adequate & Stable
[2017-02-04] MEDS: HYDROmorphone 0.5 MG/0.5 ML Syringe IVPUSH PRN ×2 (10:43→11:04)
[2017-02-04] MEDS: cefOXitin 2 GM in Premix Bag 1 BAG IV SCH ×2 (13:16→18:48)
[2017-02-04] MEDS ORDERED: Diphtheria,Pertussis(Acell),Tetanus Vaccine 0.5 ML SDV IM ONE (15:41)
[2017-02-04] MEDS ORDERED: Pneumococcal Polyvalent-23 Vaccine 0.5 ML SDV IM ONE (15:41)
[2017-02-04] MEDS ORDERED: Famotidine 20 MG/2 ML SDV IVPUSH ONE (15:52)
[2017-02-04] MEDS ORDERED: FLU Vacc QS 2017-18 (6mos UP)/PF 60 MCG/0.5 ML Syringe IM ONE (16:00)
[2017-02-04] MEDS ORDERED: HYDROmorphone 0.5 MG/0.5 ML Syringe IVPUSH PRN (17:01)
[2017-02-04] MEDS ORDERED: Ondansetron 4 MG in Sodium Chloride 0.9% 50 ML IV PRN (17:04)
[2017-02-04] MEDS ORDERED: Ketorolac 30 MG/ML SDV IVPUSH SCH (18:30)
[2017-02-04] MEDS: Acetaminophen/HYDROcodone 325-5 MG Tab PO PRN (19:46)
[2017-02-05] MEDS: Acetaminophen/HYDROcodone 325-5 MG Tab PO PRN ×4 (00:03→15:03)
[2017-02-05] MEDS: cefOXitin 2 GM in Premix Bag 1 BAG IV SCH ×3 (00:08→13:22)
[2017-02-05] MEDS ORDERED: Doxycycline 100 MG in Sodium Chloride 0.9% 100 ML IV SCH (02:30)
[2017-02-05] MEDS ORDERED: Water For Injection, Sterile 10 ML SDV ONE (02:30)
--- NOTE | 2017-02-05 08:28 | PCM.SURGPN ---
- General Info Date of Service: 02/05/17 POD#: 1 Functional Status: Reports: Pain Controlled, Tolerating Diet, Ambulating, Urinating - Review of Systems General: Reports: No Symptoms Pulmonary: Reports: No Symptoms Cardiovascular: Reports: No Symptoms Gastrointestinal: Reports: Abdominal Pain (manageable ), Nausea Genitourinary: Reports: No Symptoms - Patient Data Vitals - Most Recent: Last Vital Signs Temp 36.9 C 02/05/17 04:00 Pulse 88 02/05/17 04:00 Resp 16 02/05/17 04:00 BP 149/74 H 02/05/17 04:00 Pulse Ox 93 L 02/05/17 04:00 Weight - Most Recent: 139.843 kg I&O - Last 24 Hours: Intake & Output 02/04/17 02/05/17 02/05/17 22:59 06:59 14:59 Intake Total 2000 775 Output Total 240 700 Balance 1760 75 Lab Results Last 24 Hrs: Laboratory Results - last 24 hr 02/05/17 02/05/17 Range/Units 05:54 05:54 WBC 15.46 H (3.98-10.04) K/mm3 RBC 4.07 (3.98-5.22) M/mm3 Hgb 12.4 (11.2-15.7) gm/L Hct 38.4 (34.1-44.9) % MCV 94.3 (79.4-94.8) fl MCH 30.5 (25.6-32.2) pg MCHC 32.3 (32.2-35.5) g/dl RDW Std Deviation 43.0 (36.4-46.3) fL Plt Count 281 (182-369) K/mm3 MPV 10.0 (9.4-12.3) fl Sodium 143 (136-145) mEq/L Potassium 3.8 (3.5-5.1) mEq/L Chloride 106 (98-107) mEq/L Carbon Dioxide 27 (21-32) mEq/L Anion Gap 13.8 (5-15) BUN 14 (7-18) mg/dL Creatinine 1.1 H (0.55-1.02) mg/dL Est Cr Clr Drug Dosing 56.46 mL/min Estimated GFR (MDRD) 57 (>60) mL/min BUN/Creatinine Ratio 12.7 L (14-18) Glucose 118 H (74-106) mg/dL Calcium 8.5 (8.5-10.1) mg/dL Med Orders - Current: Current Medications Hydrocodone Bitart/Acetaminophen ([place] 325-5 Mg) 2 tab PO Q4H PRN PRN Reason: Pain Last Admin: 02/05/17 04:02 Dose: 2 tab Hydromorphone HCl (Dilaudid) 0.5 mg IVPUSH Q4H PRN PRN Reason: Pain Ondansetron HCl 4 mg/ Sodium (Chloride) 52 mls @ 100 mls/hr IV Q8HR PRN PRN Reason: Nausea Cefoxitin Sodium 2 gm/ Premix 50 mls @ 100 mls/hr IV Q6H MICHELLE Last Admin: 02/05/17 06:45 Dose: 100 mls/hr Doxycycline Hyclate 100 mg/ (Dextrose/Water) 100 mls @ 100 mls/hr IV Q12H MICHELLE Discontinued Medications Bupivacaine HCl (Marcaine 0.5%) Confirm Administered Dose 30 ml .ROUTE .STK-MED ONE Stop: 02/04/17 08:04 Last Admin: 02/04/17 09:02 Dose: 15 ml Dexamethasone (Dexamethasone) Confirm Administered Dose 4 mg .ROUTE .STK-MED ONE Stop: 02/04/17 07:52 Diatrizoate Meglum/Diatrizoate Sod (Gastrografin 37%) 90 ml PO ONETIME ONE Stop: 02/04/17 04:21 Last Admin: 02/04/17 04:41 Dose: 90 ml Diphtheria/Tetanus/Acell Pertussis (Adacel) 0.5 ml IM .ONCE ONE Stop: 02/04/17 15:42 Famotidine (Pepcid) 20 mg IVPUSH ONETIME ONE Stop: 02/04/17 15:53 Last Admin: 02/04/17 16:07 Dose: 20 mg Fentanyl (Sublimaze) Confirm Administered Dose 250 mcg .ROUTE .STK-MED ONE Stop: 02/04/17 07:51 Fentanyl (Sublimaze) 50 mcg IVPUSH Q5M PRN PRN Reason: Pain Stop: 02/04/17 18:00 Glycopyrrolate () Confirm Administered Dose 1 mg .ROUTE .STK-MED ONE Stop: 02/04/17 10:15 Hydromorphone HCl (Dilaudid) 1 mg IVPUSH ONETIME ONE Stop: 02/04/17 03:11 Last Admin: 02/04/17 03:24 Dose: 1 mg Hydromorphone HCl (Dilaudid) 1 mg IVPUSH ONETIME ONE Stop: 02/04/17 04:16 Last Admin: 02/04/17 04:23 Dose: 1 mg Hydromorphone HCl (Dilaudid) 0.5 mg IVPUSH ONETIME ONE Stop: 02/04/17 06:46 Last Admin: 02/04/17 06:51 Dose: 0.5 mg Hydromorphone HCl (Dilaudid) 0.5 mg IVPUSH Q15M PRN PRN Reason: severe pain Stop: 02/04/17 18:00 Last Admin: 02/04/17 11:04 Dose: 0.5 mg Hydromorphone HCl (Dilaudid) Confirm Administered Dose 1 mg .ROUTE .STK-MED ONE Stop: 02/04/17 09:48 Sodium Chloride (Normal Saline) 1,000 mls @ 150 mls/hr IV ASDIRECTED [facility] Stop: 02/04/17 23:00 Last Infusion: 02/04/17 18:52 Dose: 150 mls/hr Lidocaine HCl (Xylocaine-Mpf 1%) Confirm Administered Dose 4 mls @ as directed .ROUTE .STK-MED ONE Stop: 02/04/17 07:52 Lactated Ringer's (Ringers, Lactated) Confirm Administered Dose 1,000 mls @ as directed .ROUTE .STK-MED ONE Stop: 02/04/17 09:16 Cefoxitin Sodium 2 gm/ Premix 50 mls @ 100 mls/hr IV Q6H [facility] Last Admin: 02/04/17 18:48 Dose: 100 mls/hr Doxycycline Hyclate 100 mg/ (Dextrose/Water) 100 mls @ 100 mls/hr IV Q12H [facility] Last Admin: 02/04/17 12:00 Dose: 100 mls/hr Doxycycline Hyclate 100 mg/ (Sodium Chloride) 100 mls @ 100 mls/hr IV Q12H [facility] Last Admin: 02/05/17 02:32 Dose: 100 mls/hr Influenza Virus Vaccine (Pharmacy To Dose - Influenza Vaccine) 1 each IM ONETIME ONE Stop: 02/04/17 15:42 Influenza Virus Vaccine (Flulaval Quad [id number]) 60 mcg IM .ONCE ONE Stop: 02/04/17 16:01 Iopamidol (Isovue-300 (61%)) 125 ml IVPUSH ONETIME ONE Stop: 02/04/17 04:21 Last Admin: 02/04/17 04:41 Dose: 125 ml Ketorolac Tromethamine (Toradol) Confirm Administered Dose 30 mg .ROUTE .STK- MED ONE Stop: 02/04/17 10:08 Ketorolac Tromethamine (Toradol) 30 mg IVPUSH Q8H MICHELLE Stop: 02/05/17 02:31 Meperidine HCl (Demerol) 12.5 mg IVPUSH ONETIME PRN PRN Reason: shivering Stop: 02/04/17 18:00 Midazolam HCl (Versed 1 Mg/Ml) Confirm Administered Dose 2 mg .ROUTE .STK-MED ONE Stop: 02/04/17 07:51 Neostigmine Methylsulfate (Neostigmine) Confirm Administered Dose 5 mg .ROUTE .STK-MED ONE Stop: 02/04/17 10:15 Ondansetron HCl (Zofran) 4 mg IVPUSH ONETIME ONE Stop: 02/04/17 03:11 Last Admin: 02/04/17 03:21 Dose: 4 mg Ondansetron HCl (Zofran) 4 mg IVPUSH ONETIME ONE Stop: 02/04/17 05:04 Last Admin: 02/04/17 05:08 Dose: 4 mg Ondansetron HCl (Zofran) Confirm Administered Dose 4 mg .ROUTE .STK-MED ONE Stop: 02/04/17 07:52 Ondansetron HCl (Zofran) 4 mg IVPUSH ONETIME PRN PRN Reason: Nausea/Vomiting Stop: 02/04/17 18:00 Oxycodone/Acetaminophen (Percocet 325-5 Mg) 2 tab PO Q4H PRN PRN Reason: Pain (moderate 4-6) Last Admin: 02/04/17 15:49 Dose: 2 tab Pneumococcal Polyvalent Vaccine (Pneumovax 23) 0.5 ml IM .ONCE ONE Stop: 02/04/17 15:42 Propofol (Diprivan 20 Ml) Confirm Administered Dose 200 mg .ROUTE .STK-MED ONE Stop: 02/04/17 07:50 Rocuronium [place] (Zemuron) Confirm Administered Dose 50 mg .ROUTE .STK-MED ONE Stop: 02/04/17 07:52 Sodium Chloride (Saline Flush) 10 ml FLUSH ONETIME ONE Stop: 02/04/17 04:21 Last Admin: 02/04/17 04:41 Dose: 10 ml Sterile Water (Sterile Water For Injection) 10 ml .XX ONETIME ONE Stop: 02/05/17 02:31 Succinylcholine Chloride (Quelicin) Confirm Administered Dose 200 mg .ROUTE .STK -MED ONE Stop: 02/04/17 07:52 - Exam Wound/Incisions: Healing Well, No Drainage General: Alert, Oriented, Cooperative Lungs: Clear to Auscultation, Normal Respiratory Effort Cardiovascular: Regular Rate, Regular Rhythm GI/Abdominal Exam: Soft, Tender (appropriate post op ) Extremities: Normal Inspection Skin: Warm, Dry, Intact - Problem List & Annotations (1) Abdominal pain SNOMED Code(s): 43578426 Code(s): R10.9 - UNSPECIFIED ABDOMINAL PAIN Status: Acute Current Visit: Yes Qualifiers: Abdominal location: lower abdomen, unspecified Qualified Code(s): R10.30 - Lower abdominal pain, unspecified (2) BMI 50.0-59.9, adult SNOMED Code(s): 195528830 Code(s): Z68.43 - BODY MASS INDEX (BMI) 50-59.9 , ADULT Status: Acute Current Visit: Yes (3) Left tubo-ovarian abscess SNOMED Code(s): 33407155 Code(s): N70.93 - SALPINGITIS AND OOPHORITIS, UNSPECIFIED Status: Acute Current Visit: Yes - Problem List Review Problem List Initiated/Reviewed/Updated: Yes - My Orders Last 24 Hours: Active Orders 24 hr Category Date Time Status Insert Trimble Catheter [Insert Urinary Catheter] [OM.PC] Care 02/04/17 08:30 Ordered Q24H Urinary Catheter Assessment [RC] ASDIRECTED Care 02/04/17 15:03 Active Vaccines to be Administered [RC] PER UNIT ROUTINE Care 02/04/17 15:41 Active Acetaminophen/HYDROcodone [[place] 325-5 MG] Med 02/04/17 17:00 Active 2 tab PO Q4H PRN Doxycycline [Vibramycin] 100 mg Med 02/05/17 14:00 Active Dextrose 5% in Water 100 ml IV Q12H HYDROmorphone [Dilaudid] Med 02/04/17 17:01 Active 0.5 mg IVPUSH Q4H PRN Ondansetron [Zofran] 4 mg Med 02/04/17 17:04 Active Sodium Chloride 0.9% [Normal Saline] 50 ml IV Q8HR cefOXitin [Mefoxin in Dextrose,Iso-Osm 2 GM/50 ML] 2 gm Med 02/05/17 01:00 Active Premix Bag 1 bag IV Q6H Medication Orders Hydrocodone Bitart/Acetaminophen ([place] 325-5 Mg) 2 tab PO Q4H PRN PRN Reason: Pain Last Admin: 02/05/17 04:02 Dose: 2 tab Admin: 02/05/17 00:03 Dose: 2 tab Admin: 02/04/17 19:46 Dose: 2 tab Hydromorphone HCl (Dilaudid) 0.5 mg IVPUSH Q4H PRN PRN Reason: Pain Ondansetron HCl 4 mg/ Sodium (Chloride) 52 mls @ 100 mls/hr IV Q8HR PRN PRN Reason: Nausea Cefoxitin Sodium 2 gm/ Premix 50 mls @ 100 mls/hr IV Q6H MICHELLE Last Admin: 02/05/17 06:45 Dose: 100 mls/hr Infusion: 02/05/17 00:38 Dose: 100 mls/hr Admin: 02/05/17 00:08 Dose: 100 mls/hr Doxycycline Hyclate 100 mg/ (Dextrose/Water) 100 mls @ 100 mls/hr IV Q12H MICHELLE - Assessment Assessment (Free Text/Narrative):: 37 y/o woman POD#1 from Diagnostic laparoscopy, LSO for findings of ruptured tubo-ovarian abscess - Plan Plan (Free Text/Narrative):: TOA / Post op * Has been on cefoxitin and doxycycline post op. White count prior to surgery not elevated, but now 15. Likely portion of elevation due to stress response from surgery. Has been afebrile. Blood cultures no growth to date. Intra- abdominal fluid culture pending. Will plan for 24 hours of IV antibiotics and then will discharge home with 10 day regimen of Levofloxacin and Flagyl. Will need follow up in clinic in 1-2 weeks * Lortab for pain Dark stomack contents * Heme testing negative. Will need follow up with Dr. Sheffield as an out patient
--- NOTE | 2017-02-05 08:51 | PCM.DCSUM1 ---
Discharge Summary - Discharge Data Discharge Date: 02/05/17 Discharge Disposition: Home, Self-Care 01 Condition: Good - Discharge Diagnosis/Problem(s) (1) Abdominal pain SNOMED Code(s): 82519602 ICD Code: R10.9 - UNSPECIFIED ABDOMINAL PAIN Status: Acute Qualifiers: Abdominal location: lower abdomen, unspecified Qualified Code(s): R10.30 - Lower abdominal pain, unspecified (2) BMI 50.0-59.9, adult SNOMED Code(s): 756475502 ICD Code: Z68.43 - BODY MASS INDEX (BMI) 50-59.9 , ADULT Status: Acute (3) Left tubo-ovarian abscess SNOMED Code(s): 36132090 ICD Code: N70.93 - SALPINGITIS AND OOPHORITIS, UNSPECIFIED Status: Acute - Patient Summary/Data Operative Procedure(s) Performed: Diagnostic laparoscopy. Evacuation/ Irrigation of purluent material. Left salpingo-oophorectomy Complications: None Consults: Intra-op consult from General Surgery Recommended Follow-up Testing/Procedures: Follow up in 1-2 weeks for post op check. Will also need post op follow up with Dr. Sheffield [facility] Course: 37 y/o G0 woman presented to the ER with acute episode of abdominal/pelvic pain. CT/US done with concerns for possible ruptured hemorrhagic cyst. Discussion had with patient and she did agree to diagnostic laparoscopy. This did not show a ruptured hemorrhagic cyst, but instead a ruptured TOA. The abdomen was irrigated and the left fallopian tube and ovary were removed. Post op she was started on cefoxitin and doxycycline which were continued for 24 hours. During this time she remained afebrile. Her pain was well controlled so she was discharged home on regimen of oral Levofloxacin and Flagyl - Patient Instructions Diet: Regular Diet as Tolerated Activity: No Lifting Over 20 Pounds Driving: Do Not Drive (While taking narcotics ) Showering/Bathing: May Shower, No Tub Bathing/Swimming Wound/Incision Care: Keep Operative Site/Wound Site Clean and Dry Notify Provider of: Fever, Increased Pain, Swelling and Redness, Drainage - Discharge Plan Prescriptions/Med Rec: Acetaminophen/HYDROcodone [[place] 325-5 MG] 2 tab PO Q4H PRN #25 tablet PRN Reason: Pain Levofloxacin 500 mg PO DAILY #10 tablet metroNIDAZOLE [Flagyl] 500 mg PO Q12H #20 tablet Home Medications: Home Meds Omeprazole 20 mg PO DAILY 02/04/17 [History] Acetaminophen/HYDROcodone [[place] 325-5 MG] 2 tab PO Q4H PRN #25 tablet 02/05/17 [Rx] Levofloxacin 500 mg PO DAILY #10 tablet 02/05/17 [Rx] metroNIDAZOLE [Flagyl] 500 mg PO Q12H #20 tablet 02/05/17 [Rx] Patient Handouts: Smoking Cessation, Tips for Success, [id number], Smoking Hazards, Ovarian Cyst, Diagnostic Laparoscopy Referrals: Zohra Bullock MD [Physician] - (1-2 weeks for post op check ) - Discharge Summary/Plan Comment DC Time >30 min.: No - Patient Data Vitals - Most Recent: Last Vital Signs Temp 36.9 C 02/05/17 04:00 Pulse 88 02/05/17 04:00 Resp 16 02/05/17 04:00 BP 149/74 H 02/05/17 04:00 Pulse Ox 93 L 02/05/17 04:00 Weight - Most Recent: 139.843 kg I&O - Last 24 hours: Intake & Output 02/04/17 02/05/17 02/05/17 22:59 06:59 14:59 Intake Total 2000 775 Output Total 240 700 Balance 1760 75 Lab Results - Last 24 hrs: Laboratory Results - last 24 hr 02/05/17 02/05/17 Range/Units 05:54 05:54 WBC 15.46 H (3.98-10.04) K/mm3 RBC 4.07 (3.98-5.22) M/mm3 Hgb 12.4 (11.2-15.7) gm/L Hct 38.4 (34.1-44.9) % MCV 94.3 (79.4-94.8) fl MCH 30.5 (25.6-32.2) pg MCHC 32.3 (32.2-35.5) g/dl RDW Std Deviation 43.0 (36.4-46.3) fL Plt Count 281 (182-369) K/mm3 MPV 10.0 (9.4-12.3) fl Sodium 143 (136-145) mEq/L Potassium 3.8 (3.5-5.1) mEq/L Chloride 106 (98-107) mEq/L Carbon Dioxide 27 (21-32) mEq/L Anion Gap 13.8 (5-15) BUN 14 (7-18) mg/dL Creatinine 1.1 H (0.55-1.02) mg/dL Est Cr Clr Drug Dosing 56.46 mL/min Estimated GFR (MDRD) 57 (>60) mL/min BUN/Creatinine Ratio 12.7 L (14-18) Glucose 118 H (74-106) mg/dL Calcium 8.5 (8.5-10.1) mg/dL Med Orders - Current: Current Medications Hydrocodone Bitart/Acetaminophen ([place] 325-5 Mg) 2 tab PO Q4H PRN PRN Reason: Pain Last Admin: 02/05/17 04:02 Dose: 2 tab Hydromorphone HCl (Dilaudid) 0.5 mg IVPUSH Q4H PRN PRN Reason: Pain Ondansetron HCl 4 mg/ Sodium (Chloride) 52 mls @ 100 mls/hr IV Q8HR PRN PRN Reason: Nausea Cefoxitin Sodium 2 gm/ Premix 50 mls @ 100 mls/hr IV Q6H MICHELLE Last Admin: 02/05/17 06:45 Dose: 100 mls/hr Doxycycline Hyclate 100 mg/ (Dextrose/Water) 100 mls @ 100 mls/hr IV Q12H MICHELLE Discontinued Medications Bupivacaine HCl (Marcaine 0.5%) Confirm Administered Dose 30 ml .ROUTE .STK-MED ONE Stop: 02/04/17 08:04 Last Admin: 02/04/17 09:02 Dose: 15 ml Dexamethasone (Dexamethasone) Confirm Administered Dose 4 mg .ROUTE .STK-MED ONE Stop: 02/04/17 07:52 Diatrizoate Meglum/Diatrizoate Sod (Gastrografin 37%) 90 ml PO ONETIME ONE Stop: 02/04/17 04:21 Last Admin: 02/04/17 04:41 Dose: 90 ml Diphtheria/Tetanus/Acell Pertussis (Adacel) 0.5 ml IM .ONCE ONE Stop: 02/04/17 15:42 Famotidine (Pepcid) 20 mg IVPUSH ONETIME ONE Stop: 02/04/17 15:53 Last Admin: 02/04/17 16:07 Dose: 20 mg Fentanyl (Sublimaze) Confirm Administered Dose 250 mcg .ROUTE .STK-MED ONE Stop: 02/04/17 07:51 Fentanyl (Sublimaze) 50 mcg IVPUSH Q5M PRN PRN Reason: Pain Stop: 02/04/17 18:00 Glycopyrrolate () Confirm Administered Dose 1 mg .ROUTE .STK-MED ONE Stop: 02/04/17 10:15 Hydromorphone HCl (Dilaudid) 1 mg IVPUSH ONETIME ONE Stop: 02/04/17 03:11 Last Admin: 02/04/17 03:24 Dose: 1 mg Hydromorphone HCl (Dilaudid) 1 mg IVPUSH ONETIME ONE Stop: 02/04/17 04:16 Last Admin: 02/04/17 04:23 Dose: 1 mg Hydromorphone HCl (Dilaudid) 0.5 mg IVPUSH ONETIME ONE Stop: 02/04/17 06:46 Last Admin: 02/04/17 06:51 Dose: 0.5 mg Hydromorphone HCl (Dilaudid) 0.5 mg IVPUSH Q15M PRN PRN Reason: severe pain Stop: 02/04/17 18:00 Last Admin: 02/04/17 11:04 Dose: 0.5 mg Hydromorphone HCl (Dilaudid) Confirm Administered Dose 1 mg .ROUTE .STK-MED ONE Stop: 02/04/17 09:48 Sodium Chloride (Normal Saline) 1,000 mls @ 150 mls/hr IV ASDIRECTED [facility] Stop: 02/04/17 23:00 Last Infusion: 02/04/17 18:52 Dose: 150 mls/hr Lidocaine HCl (Xylocaine-Mpf 1%) Confirm Administered Dose 4 mls @ as directed .ROUTE .STK-MED ONE Stop: 02/04/17 07:52 Lactated Ringer's (Ringers, Lactated) Confirm Administered Dose 1,000 mls @ as directed .ROUTE .STK-MED ONE Stop: 02/04/17 09:16 Cefoxitin Sodium 2 gm/ Premix 50 mls @ 100 mls/hr IV Q6H [facility] Last Admin: 02/04/17 18:48 Dose: 100 mls/hr Doxycycline Hyclate 100 mg/ (Dextrose/Water) 100 mls @ 100 mls/hr IV Q12H [facility] Last Admin: 02/04/17 12:00 Dose: 100 mls/hr Doxycycline Hyclate 100 mg/ (Sodium Chloride) 100 mls @ 100 mls/hr IV Q12H [facility] Last Admin: 02/05/17 02:32 Dose: 100 mls/hr Influenza Virus Vaccine (Pharmacy To Dose - Influenza Vaccine) 1 each IM ONETIME ONE Stop: 02/04/17 15:42 Influenza Virus Vaccine (Flulaval Quad [id number]) 60 mcg IM .ONCE ONE Stop: 02/04/17 16:01 Iopamidol (Isovue-300 (61%)) 125 ml IVPUSH ONETIME ONE Stop: 02/04/17 04:21 Last Admin: 02/04/17 04:41 Dose: 125 ml Ketorolac Tromethamine (Toradol) Confirm Administered Dose 30 mg .ROUTE .STK- MED ONE Stop: 02/04/17 10:08 Ketorolac Tromethamine (Toradol) 30 mg IVPUSH Q8H [facility] Stop: 02/05/17 02:31 Meperidine HCl (Demerol) 12.5 mg IVPUSH ONETIME PRN PRN Reason: shivering Stop: 02/04/17 18:00 Midazolam HCl (Versed 1 Mg/Ml) Confirm Administered Dose 2 mg .ROUTE .STK-MED ONE Stop: 02/04/17 07:51 Neostigmine Methylsulfate (Neostigmine) Confirm Administered Dose 5 mg .ROUTE .STK-MED ONE Stop: 02/04/17 10:15 Ondansetron HCl (Zofran) 4 mg IVPUSH ONETIME ONE Stop: 02/04/17 03:11 Last Admin: 02/04/17 03:21 Dose: 4 mg Ondansetron HCl (Zofran) 4 mg IVPUSH ONETIME ONE Stop: 02/04/17 05:04 Last Admin: 02/04/17 05:08 Dose: 4 mg Ondansetron HCl (Zofran) Confirm Administered Dose 4 mg .ROUTE .STK-MED ONE Stop: 02/04/17 07:52 Ondansetron HCl (Zofran) 4 mg IVPUSH ONETIME PRN PRN Reason: Nausea/Vomiting Stop: 02/04/17 18:00 Oxycodone/Acetaminophen (Percocet 325-5 Mg) 2 tab PO Q4H PRN PRN Reason: Pain (moderate 4-6) Last Admin: 02/04/17 15:49 Dose: 2 tab Pneumococcal Polyvalent Vaccine (Pneumovax 23) 0.5 ml IM .ONCE ONE Stop: 02/04/17 15:42 Propofol (Diprivan 20 Ml) Confirm Administered Dose 200 mg .ROUTE .STK-MED ONE Stop: 02/04/17 07:50 Rocuronium [place] (Zemuron) Confirm Administered Dose 50 mg .ROUTE .STK-MED ONE Stop: 02/04/17 07:52 Sodium Chloride (Saline Flush) 10 ml FLUSH ONETIME ONE Stop: 02/04/17 04:21 Last Admin: 02/04/17 04:41 Dose: 10 ml Sterile Water (Sterile Water For Injection) 10 ml .XX ONETIME ONE Stop: 02/05/17 02:31 Succinylcholine Chloride (Quelicin) Confirm Administered Dose 200 mg .ROUTE .STK -MED ONE Stop: 02/04/17 07:52 *Q Meaningful Use (DIS) - VTE *Q VTE Criteria *Q: - Stroke *Q Stroke Criteria *Q: - AMI *Q AMI Criteria *Q:
[2017-02-05] MEDS ORDERED: Ondansetron 4 MG/2 ML SDV IVPUSH PRN (09:59)
--- NOTE | 2017-02-05 13:03 | PCM48HPAN ---
Post Anesthesia Note - EVALUATION WITHIN 48HRS OF ANESTHETIC Vital Signs in Normal Range: Yes Patient Participated in Evaluation: Yes Respiratory Function Stable: Yes Airway Patent: Yes Cardiovascular Function Stable: Yes Hydration Status Stable: Yes Pain Control Satisfactory: Yes Nausea and Vomiting Control Satisfactory: Yes Mental Status Recovered: Yes
== END 2017-02-05 15:55 | disposition home or self-care (01) | DRG 513 ==
LOC: JD.ED 02:43 → JD.SDS 07:25 → UNDOADMIN 11:43 → JD.OB 11:43
PROVIDERS: ADMIT Obstetrics & Gynecology; ATTEND Obstetrics & Gynecology
PROC: 0UT64ZZ Resection of Left Fallopian Tube, Percutaneous Endoscopic Approach (ICD-10-PCS; principal; 2017-02-04)
PROC: 0UT14ZZ Resection of Left Ovary, Percutaneous Endoscopic Approach (ICD-10-PCS; 2017-02-04)
DX: N70.93 Salpingitis and oophoritis, unspecified (principal); K66.1 Hemoperitoneum; E66.9 Obesity, unspecified; Z68.43 Body mass index [BMI] 50.0-59.9, adult; K21.9 Gastro-esophageal reflux disease without esophagitis; E78.00 Pure hypercholesterolemia, unspecified; F17.210 Nicotine dependence, cigarettes, uncomplicated
CPT/HCPCS: 00840; 36415; 74177; 74177-26; 76830; 76830-26; 80048; 80053; 81001; 81025; 82271; 83690; 85014; 85018; 85025; 85027; 87040; 87070; 87077; 87184; 87205; 87210; 96361; 96374; 96375; 96376; 99285; 99285-25; A9270-GY; J0330; J0694; J1100; J1170; J1885; J2250; J2405; J2704; J2710; J3010; J7030; J7040; J7050; J7060; J7120; Q9963; Q9967